=== PATIENT | female | born 1955 | race Caucasian/White ===

== ENCOUNTER 2022-10-20 14:30 | Emergency (ER) | payer MEDICARE, SELFPAY ==
[2022-10-20 14:41] VITALS: BP 140/76; PULSE 63; RESP 18; TEMP 36.7; O2SAT 99
--- NOTE | 2022-10-20 14:54 | ED.SYNCOPE ---
HPI - Syncope General Chief Complaint: Syncope Stated Complaint: syncope s/p injection Time Seen by Provider: 10/20/22 14:33 History of Present Illness HPI narrative: Patient is a 67-year-old female presenting with syncope. Patient states that she was at her pain management doctor and she received a cortisone shot in her spine. After the shot, she became hot, sweaty, nauseated and lightheaded. Patient then had a syncopal episode. Patient states that she immediately started feeling better as she woke up. She denies any chest pain or shortness of breath. EMS was called and patient refused transfer but then her physician insisted. Currently, the patient states that she feels very well and she would like to go. Related Data Allergies Allergy/AdvReac Type Severity Reaction Status Date / Time povidone-iodine Allergy Mild unknown Verified 05/26/17 17:39 soap Allergy Mild unknown Verified 05/26/17 17:39 morphine AdvReac Mild NAUSEA/VOMI Verified 05/26/17 17:39 TING codeine AdvReac Unknown NAUSEA/VOMI Verified 05/26/17 17:39 TING Review of Systems Review of Systems: All systems reviewed & are unremarkable except as noted in HPI and below Exam Narrative: GENERAL: Well-appearing, well-nourished, and in no acute distress. HEAD: Normocephalic, atraumatic. EYES: PERRLA and EOMI. ENT: Nares clear, no rhinorrhea or epistaxis. Mucous membranes moist. NECK: Supple. CHEST: Clear to auscultation. No respiratory distress. HEART: Regular rate and rhythm. No murmur heard. Normal peripheral pulses. ABDOMEN: Soft, nontender, nondistended, normal active bowel sounds. EXTREMITIES: Normal range of motion. No edema. SKIN: Warm, dry, no rash. NEURO: No focal deficits. Alert and oriented x3. PSYCH: Normal mood and affect. Course Vital Signs Vital signs: Vital Signs Temperature 98.1 F 10/20/22 14:41 Pulse Rate 63 10/20/22 14:41 Respiratory Rate 18 10/20/22 14:41 Blood Pressure 140/76 10/20/22 14:41 Pulse Oximetry 99 10/20/22 14:41 Oxygen Delivery Room Air 10/20/22 14:41 Temperature 98.1 F 10/20/22 14:41 Pulse Rate 63 10/20/22 14:41 Respiratory Rate 18 10/20/22 14:41 Blood Pressure 140/76 10/20/22 14:41 Pulse Oximetry 99 10/20/22 14:41 Oxygen Delivery Room Air 10/20/22 14:41 MDM - Syncope MDM Narrative Medical decision making narrative: Patient is a 67-year-old female presenting with vasovagal syncope. Vitals are within normal limits. Patient is well-appearing and in no acute distress. Patient states that she feels fine and that she would like to go home which I do not think is unreasonable. She actually did not want to come to the ER at all. Her description of the episode sounds like classic vasovagal syncope. Strict return precautions were given. Discharged in stable condition. Differential Diagnosis Differential diagnosis: Likely syncope due to orthostatic hypotension, vasovagal syncope and dehydration Critical Care Time Critical Care Time Critical Care Time: No Discharge Plan Discharge Clinical Impression: Vasovagal syncope Patient Disposition: Home, Self-Care Condition: Stable Instructions: Antibiotic Form, Syncope (DC) Additional Instructions: Please make sure to drink plenty of fluids. If you develop chest pain, shortness of breath, numbness or weakness, or other concerning symptoms arise, please return to the ER. Follow-up/Referrals: Cira,Josr Salter. [Primary Care Provider] -
--- NOTE | 2022-10-20 15:35 | PC.NURSE ---
spoke with Coleman from care coordination at this time who informed this RN he would speak to patient regarding a cab voucher back to the [facility]. Patient updated at this time. Ceci charge nurse notified
== END 2022-10-20 15:38 | disposition home or self-care (01) ==
PROVIDERS: Emergency Provider Emergency Medicine; PCP Internal Medicine Infectious Disease
DX: R55 Syncope and collapse (principal)
CPT/HCPCS: 99283